=== PATIENT | male | born 1945 | race Caucasian/White ===

== ENCOUNTER 2018-12-06 04:11 | Outpatient (CLI) | payer MEDICARE, BC, SELFPAY ==
[2018-12-06 07:52] LABS: Abs Immature Grans 0.01 k/cumm (0.0-0.09); Absolute Basophil Count 0.02 k/cumm (0.0-0.2); Absolute Lymphocyte Count 1.55 k/cumm (1.2-3.4); Absolute Monocyte Count 0.57 k/cumm (0.11-0.7); Absolute Neutrophil Count 2.69 k/cumm (1.2-6.7); Basophils % 0.4; Eosinophils % 5.8; HCT 44.3 % (40.0-50.0); HGB 14.8 g/dL (13.5-17.5); Immature Grans % 0.2; Lymphocytes % 30.2; Mean Corp. HGB Concentration 33.4 g/dL (32.0-36.0); Mean Corpuscular Hemoglobin 28.5 pg (27.0-33.0); Mean Corpuscular Volume 85.2 fL (80-95); Mean Platelet Volume 10.4 fL (8.0-11.0); Monocytes % 11.1; Neutrophils % 52.3; Platelet Count 180 x1000/uL (130-400); RBC Distribution Width 12.7 % (11.8-14.1); White Blood Cell Count 5.14 k/cumm (4.4-10.8)
[2018-12-06 08:06] LABS: Hemoglobin A1C 6.1 % (4.5-6.2)
[2018-12-06 08:14] LABS: INR 1.1 (0.9-1.1); Prothrombin Time 10.9 sec (9.3-11.0)
[2018-12-06 08:25] LABS: Iron 101 ug/dL (50-175); Total Iron Binding Capacity 249 ug/dL (250-450); Transferrin Sat 41 % (20-55)
[2018-12-06 08:45] LABS: ALT 60 U/L (12-78); AST 29 U/L (15-37); Alkaline Phosphatase 97 U/L (46-116); Anion Gap 9.2 mmol/L (3-11); BUN 17 mg/dL (7-18); Bilirubin, Total 1.3 mg/dL (0.2-1.0); CO2 28.8 mmol/L (21.0-32.0); CREATININE 0.96 mg/dL (0.70-1.30); Chloride 103 mmol/L (98-107); Cholesterol 159 mg/dL (50-200); Ferritin 48 ng/mL (8-388); Glucose 115 mg/dL (70-100); HDL Cholesterol 37 mg/dL (40-60); LDL CHOLESTEROL 107 mg/dL (<100); Potassium 3.8 mmol/L (3.5-5.1); Sodium 141 mmol/L (136-145); Total Protein 7.2 g/dL (6.4-8.2); Triglyceride 130 mg/dL (30-150)
== END 2018-12-06 04:31 ==
PROVIDERS: PCP Nurse Practitioner Family; Visit Provider Nurse Practitioner Family
DX: R73.01 Impaired fasting glucose (principal); E78.5 Hyperlipidemia, unspecified; K76.0 Fatty (change of) liver, not elsewhere classified
CPT/HCPCS: 36415; 80053; 80061; 83721; 82728; 83036; 83540; 83550; 85025; 85610

== ENCOUNTER 2020-03-13 10:39 | Outpatient (CLI) | payer MEDICARE, BC, SELFPAY ==
--- NOTE | 2020-03-13 10:15 | DI.RAD_ITS ---
EXAM: XR HIP RT COMPLETE AP PELVIS INDICATION: eval R hip pain. COMPARISON: No exams were available for comparison TECHNIQUE: 2D digital imaging was performed. FINDINGS: There is bilateral acetabular spurring. There is [id number] narrowing of right hip joint spac e. There is spurring at the margin of the right femoral head. Mild spurring is also seen from the m argin of left femoral head. Bilateral inguinal hernia repairs are noted. IMPRESSION: Moderate degenerative changes the left hip. Mild degenerative changes of right hip. DATA REPOSITORY: RADIATION DOSE DELIVERED:
== END 2020-03-13 10:59 ==
PROVIDERS: PCP Nurse Practitioner Family; Referring Provider Nurse Practitioner Family; Visit Provider Student in an Organized Health Care Education/Training Program
DX: M16.0 Bilateral primary osteoarthritis of hip (principal); M25.551 Pain in right hip; R20.0 Anesthesia of skin; R20.2 Paresthesia of skin; I10 Essential (primary) hypertension
CPT/HCPCS: 99203; 73502

== ENCOUNTER 2020-11-14 02:04 | Outpatient (CLI) | payer MEDICARE, BC, SELFPAY ==
[2020-11-14 08:24] LABS: Hemoglobin A1C 6.2 % (<5.7)
[2020-11-14 08:27] LABS: INR 1.1 (0.9-1.1); Prothrombin Time 11.3 sec (9.3-11.0)
[2020-11-14 09:09] LABS: Iron 121 ug/dL (65-175); Total Iron Binding Capacity 285 ug/dL (250-450); Transferrin Sat 42 % (20-55)
[2020-11-14 09:18] LABS: ALT 104 U/L (16-63); AST 53 U/L (15-37); Albumin 4.2 g/dL (3.4-5.0); Alkaline Phosphatase 90 U/L (46-116); Anion Gap 9.2 mmol/L (3-11); BUN 16 mg/dL (7-18); Bilirubin, Total 1.5 mg/dL (0.2-1.0); CO2 30.8 mmol/L (21.0-32.0); Calcium 8.9 mg/dL (8.5-10.1); Chloride 105 mmol/L (98-107); Ferritin 75 ng/mL (26-388); Glucose 125 mg/dL (74-106); Potassium 3.9 mmol/L (3.5-5.1); Sodium 145 mmol/L (136-145); Total Protein 7.4 g/dL (6.4-8.2)
== END 2020-11-14 02:05 | disposition home or self-care (01) ==
LOC: LBO 02:04
PROVIDERS: PCP Nurse Practitioner Family; Visit Provider Nurse Practitioner Family
DX: I10 Essential (primary) hypertension (principal); R73.01 Impaired fasting glucose; K76.0 Fatty (change of) liver, not elsewhere classified
CPT/HCPCS: 36415; 80053; 82728; 83036; 83540; 83550; 85610

== ENCOUNTER 2021-05-21 11:57 | Outpatient (CLI) | payer MEDICARE, BC, SELFPAY ==
--- NOTE | 2021-05-21 11:15 | DI.RAD_ITS ---
Exam(s) XR LUMBAR SPINE AP, LAT EXAM: XR LUMBAR SPINE AP, LAT CLINICAL HISTORY: eval RLE weakness. TECHNIQUE: 2D digital imaging was performed of the lumbar spine. Three images were obtained. AP, l ateral and L5-S1 spot views were obtained. COMPARISON: CR SACRO ILIAC JOINTS from 12/04/2012 CR SACRO ILIAC JOINTS from 12/04/2012 CR LUMBAR SPINE COMPLETE from 12/04/2012 CR LUMBAR SPINE COMPLETE from 12/04/2012 CR XR HIP RT AP LAT ONLY from 05/21/2021 FINDINGS: BONES: No fracture or destructive lesion. Small endplate osteophytes are seen throughout the lumbar s pine anteriorly. No facet hypertrophy identified. DISKS: Mild narrowing and a vacuum disc at L5-S1. The disc heights are otherwise well maintained. ALIGNMENT: Lumbar spinal alignment is within normal limits. No spondylolysis or spondylolisthesis. SOFT TISSUE: Calcifications are seen in the right upper quadrant of the abdomen consistent with blu lithiasis. IMPRESSION: 1. Mild degenerative changes in the lumbar spine. 2. Cholelithiasis. DATA REPOSITORY: RADIATION DOSE DELIVERED:
--- NOTE | 2021-05-21 11:15 | DI.RAD_ITS ---
Exam(s) XR HIP RT AP LAT ONLY EXAM: XR HIP RT AP LAT ONLY CLINICAL HISTORY: f/u R hip pain. TECHNIQUE: 2D digital imaging was performed of the right hip. Two images were obtained. AP and late ral right hip views were obtained. COMPARISON: CR XR HIP RT COMPLETE AP PELVIS from 03/13/2020 CR XR HIP RT COMPLETE AP PELVIS from 03/13/2020 FINDINGS: BONES: No acute fracture is present. No bony destructive lesion is seen. JOINTS: No dislocation present. Mild joint space narrowing and acetabular spurring is seen in the rig ht hip. SOFT TISSUE: Normal. IMPRESSION: Stable mild degenerative changes of the right hip. DATA REPOSITORY: RADIATION DOSE DELIVERED:
== END 2021-05-21 11:58 | disposition home or self-care (01) ==
LOC: DIORS 11:57
PROVIDERS: PCP Nurse Practitioner Family; Referring Provider Nurse Practitioner Family; Visit Provider Student in an Organized Health Care Education/Training Program
DX: M25.551 Pain in right hip (principal); R20.0 Anesthesia of skin; R20.2 Paresthesia of skin; M25.851 Other specified joint disorders, right hip
CPT/HCPCS: 99213; 72100; 73502

== ENCOUNTER 2021-06-04 02:09 | Outpatient (CLI) | payer MEDICARE, BC, SELFPAY ==
--- NOTE | 2021-06-04 07:45 | DI.RAD_ITS ---
Exam(s) RF JOINT INJECTION FLUORO GUID EXAM: RF JOINT INJECTION FLUORO GUID CLINICAL HISTORY: R HIP INJ UNDER FLUORO, rt hip pain, M25.551 TECHNIQUE: Fluoroscopy provided. Radiologist not present. CONTRAST MATERIAL: None COMPARISON: No exams were available for comparison FINDINGS: Fluoroscopy was provided for Dr. Hendrix during right hip therapeutic injection. Submitted image(s) reveal distal tip of the needle at the lateral aspect of the femoral head. Contra st injected into the articular space. Please refer to the procedure report for complete details. Cumulative Dose: shy Shaffer=0.64 mGy IMPRESSION: RADIATION DOSE DELIVERED:
[2021-06-04] MEDS: Bupivacaine 0.5% Pres-Free 10 ML VIAL IJ (13:40)
[2021-06-04] MEDS: Omnipaque 300 MG/ML 10 ML BTL IJ (13:42)
[2021-06-04] MEDS: methylPREDNISolone ACETATE 80 MG/ML VIAL IM (13:43)
--- NOTE | 2021-06-04 14:37 | W.PROCNOTE ---
Date of service: 06/04/21 Time of Service: 13:37 Procedure Note Date of procedure: 06/04/21 Procedure: Right Hip Injection with Fluoroscopic Guidance Surgeon/Proceduralist/Physician: Bret Hendrix Procedure Diagnosis: Right Hip Pain/Impingement Procedure Indications: Pino has had persistent pain of the RIGHT hip and groin. Noninvasive measures have been tried. To serve as both diagnostic and therapeutic, an injection under fluoroscopy was recommended. I had discussed the risks of the procedure and the patient elected to proceed. Procedure Description: Pino was greeted in the flouroscopy room. The correct side was identified and the consent was reviewed with the patient and signed. The patient was then placed in the supine position on the fluoroscopy table. The RIGHT hip was then prepped with Chloraprep. The anterolateral injection starting point was identiifed by bony landmarks and fluoroscopy. The skin and soft tissue in the tract of the injection was anesthetized with 1% Lidocaine. A spinal needle was then inserted deep into the hip joint at the level of the lateral femoral neck under fluoroscopic guidance. A small amount of Omnipaque solution was injected to confirm intraarticular placement. Once confirmed, the hip was injected with 6cc of 0.5% Bupivicaine and 80mg of Depo-Medrol. A bandaid was placed on the injection site. The patient tolerated the procedure well and noted improvement in pre-injection pain.
== END 2021-06-04 02:29 ==
PROVIDERS: PCP Nurse Practitioner Family; Visit Provider Student in an Organized Health Care Education/Training Program
DX: M25.551 Pain in right hip (principal); M25.851 Other specified joint disorders, right hip; R10.31 Right lower quadrant pain
CPT/HCPCS: 20610; 77002; J1040

== ENCOUNTER 2021-09-20 03:05 | Emergency (ER) | payer MEDICARE, SELFPAY ==
[2021-09-20 03:11] VITALS: BP 160/99; PULSE 87; RESP 18; TEMP 36.4; O2SAT 97
--- NOTE | 2021-09-20 03:15 | ED.GENADUL_ITS ---
Discharge Plan Disposition Patient Disposition: HOME Condition: Good Discharge Details Clinical Impression: Colitis, Diarrhea Primary Care Provider: Chantel Nguyen ED Provider: Adal Leavitt Home Meds and New Rx's Prescriptions: New ciprofloxacin HCl 500 mg tablet 500 mg PO BID 6 Days Qty: 12 RF: 0 metronidazole 500 mg tablet 500 mg PO TID 6 Days Qty: 18 RF: 0 Continued diphenhydramine-acetaminophen [Tylenol PM Extra Strength] 25-500 mg tablet 1 tab PO QHS PRNRF: 0 celecoxib [Celebrex] 200 mg capsule 200 mg PO BID Qty: 60 RF: 0 cbd oil PO .qd RF: 0 Probiotic 1 EACH capsule 1 ea PO RF: 0 losartan [Cozaar] 100 mg tablet 100 mg PO DAILY Qty: 90 RF: 3 amlodipine 5 mg tablet 5 mg PO DAILY Qty: 90 RF: 3 omeprazole 20 mg capsule,delayed release(DR/EC) 20 mg PO DAILY Qty: 90 RF: 3 Discharge Instructions Instructions: Ciprofloxacin (By mouth), Metronidazole (By mouth), Colitis (ED) Additional Instructions: At this time you have evidence of mild colitis which is an infection in your intestines. It is similar to diverticulitis. We have sent a prescription of an antibiotic to your pharmacy on file. We have given you 2 bottles, one for each of the antibiotic that you are to take, to hold you over until your pre scription is filled. Please stop taking me Augmentin that you are prescribed and take these medications instead. Please take Pepto-Bismol as needed for diarrhea. Please drink plenty of fluids and stay well-hydrated. You will be contacted if your stool studies return with any growth or abnormalities. If you notice any worsening of your symptoms, or any new symptoms such as vomiting, diarrhea, fever, chills, shortness of breath, chest pain, numbness, weakness, or fainting , please return immediately to the emergency department for reevaluation. Please follow up with your primary care provider as soon as possible for reassessment and reevaluation. As always, it was a pleasure participating in your medical care today. If your physician daughter has any questions, I would be happy to review your case with her! Feel free to have her call me anytime in the emergency department where myself or one of my colleagues can review the case with her. Referrals: Chantel Nguyen, MINNA [Primary Care Provider] - Medical Decision Making This is a pleasant 75-year-old male with a past medical history of GERD, high cholesterol, gallstones, nonalcoholic fatty liver disease, and previous diverticulitis who presents today for evaluation of left lower quadrant pain and diarrhea for the last 3 days. Patient states that since Tuesday he has had a bowel movement every 45 minutes. It has been loose and watery in nature. Initially it was yellow, however over the last 24 hours it has transitioned to darker colored stool. He denies any foreign travel, any recent antibiotic use, or any vomiting. He does admit to nausea. He has some very mild achiness in the left lower quadrant of the abdomen. He denies any urinary complaints. Nothing has improved his diarrhea. He has not eaten any foods, but has been drinking water and Gatorade to stay hydrated. No other complaints at this time. No other modifying factors. Physical exam demonstrates mild achiness to the left lower quadrant, dry mucous membranes. No genital or scrotal or testicular tenderness. Differential is highest for diverticulitis, less likely kidney stone. In regards to the diarrhea infection seems unlikely given no red flag in history or on exam. Diverticulitis or diverticulosis may get because of the most recent diarrhea. We will perform stool studies as well. We will rehydrate, monitor closely and reassess. 4:[address] results show evidence of mild pancolitis. Laboratory work-up is stable. Patient has been rehydrated with a liter of normal saline. Electrolytes stable, white count normal. Anion gap 13 suggestive of mild dehydration. Total bilirubin is up at 2.3, however patient does have a history of [place], and CAT scan shows no evidence of acute cholecystitis or obstruction. Lipase normal. Patient did provide stool, and we will send these for stool studies. We will give a dose of IV Cipro and Flagyl due to the notable diarrhea that the patient is having. We will give a bilateral of Cipro and Flagyl for home use, and a prescription will be sent to his pharmacy for a completed course. Patient shows no signs of an acute abdomen on reexam. He appears well is much improved. Hemoglobin stable, and stool color is actually green and not black. Symptoms inconsistent with GI bleeding. The patient's daughter is a rim roller operator, I did offer to call her however the patient does not have his cell phone and does not recall her number. I offered for her to call back anytime and we can discuss the case. Discussed red flags for which to return. I have extensively reviewed the treatment plan and discharge instructions with the patient. I have addressed all patient concerns at this time. The patient was made aware of what symptoms to monitor for that would warrant a return to the emergency department. Discussed the plan with the patient, they demonstrate verbal understanding and agreement with our assessment and plan at this time. The documentation in this chart was dictated using [employer] dictation software. Please excuse any dictation errors. FINDINGS: Lungs: Trace dependent bibasilar atelectasis. Heart: The visualized heart is within normal limits for size. There is no evidence of pericardial abnormality. Liver: There is a diffuse mild decrease in hepatic parenchymal density, consistent with fatty infiltration. Gallbladder and bile ducts: Multiple calcified gallstones noted. No gallbladder wall thickening or pericholecystic fat stranding or fluid. Pancreas: Fatty atrophy of the pancreas. Spleen: The spleen appears normal. Adrenal glands: The adrenals appear normal. Kidneys and ureters: The kidneys enhance symmetrically and empty into non- dilated ureters. Stomach and bowel: The stomach is not well distended but appears unremarkable.The small bowel loops are not abnormally dilated and demonstrate no focal wall thickening. Wall thickening of the sigmoid, descending, portions of the transverse and ascending colon/cecum with minimal adjacent pericolonic fat stranding. Appendix: The appendix appears normal. ntraperitoneal space: Trace free fluid in the dependent portion of the pelvis. Vasculature: Mildly prominent left internal iliac draining vein along the left lateral margin of the prostate. The IVC and aorta are unremarkable. Lymph nodes: There are no enlarged lymph nodes. Urinary bladder: The bladder is distended and demonstrates no focal contour abnormality. Reproductive: Small right-sided hydrocele. Prostate is mildly prominent but not significantly enlarged. The seminal vesicles are unremarkable. Bones/joints: Degenerative disc disease at L5-S1. Soft tissues: Postsurgical changes in the inguinal region bilaterally. Other findings: Motion artifact limiting detail in the abdomen portions of the pelvis. IMPRESSION: 1. Findings consistent with mild pancolitis. 2. Cholelithiasis without evidence of acute cholecystitis. 3. Questionable mild hepatic steatosis. 4. Small right-sided hydrocele. Thank you for allowing us to participate in the care of your patient. Dictated and Authenticated by: Javed Paniagua MD 09/20/2021 4:33 AM Eastern Time ([place] & [place]) HPI General Date/Time Provider Initiated Documentation: 09/20/21 03:07 . HPI Narrative: This is a pleasant 75-year-old male with a past medical history of GERD, high cholesterol, gallstones, nonalcoholic fatty liver disease, and previous diverticulitis who presents today for evaluation of left lower quadrant pain and diarrhea for the last 3 days. Patient states that since Tuesday he has had a bowel movement every 45 minutes. It has been loose and watery in nature. Initially it was yellow, however over the last 24 hours it has transitioned to darker colored stool. He denies any foreign travel, any recent antibiotic use, or any vomiting. He does admit to nausea. He has some very mild achiness in the left lower quadrant of the abdomen. He denies any urinary complaints. Nothing has improved his diarrhea. He has not eaten any foods, but has been drinking water and Gatorade to stay hydrated. No other complaints at this time. No other modifying factors. Related Data Home Medications Medication Instructions Recorded Confirmed Probiotic 1 ea PO 05/13/17 05/23/21 cbd oil PO .qd 12/07/18 05/23/21 diphenhydramine 25 1 tab PO QHS PRN 11/17/20 09/20/21 mg-acetaminophen 500 mg tablet losartan 100 mg tablet 100 mg PO DAILY #90 tab-cap 04/03/21 09/20/21 amlodipine 5 mg tablet 5 mg PO DAILY #90 tab-cap 04/13/21 09/20/21 omeprazole 20 mg capsule,delayed 20 mg PO DAILY #90 tab-cap 04/23/21 09/20/21 release celecoxib 200 mg capsule 200 mg PO BID #60 cap 06/04/21 09/20/21 ciprofloxacin HCl 500 mg PO BID 6 Days #12 tab 09/20/21 metronidazole 500 mg PO TID 6 Days #18 tab 09/20/21 Previous Rx's Medication Instructions Recorded losartan 100 mg tablet 100 mg PO DAILY #90 tab-cap 04/03/21 amlodipine 5 mg tablet 5 mg PO DAILY #90 tab-cap 04/13/21 omeprazole 20 mg capsule,delayed 20 mg PO DAILY #90 tab-cap 04/23/21 release celecoxib 200 mg capsule 200 mg PO BID #60 cap 06/04/21 ciprofloxacin HCl 500 mg PO BID 6 Days #12 tab 09/20/21 metronidazole 500 mg PO TID 6 Days #18 tab 09/20/21 Allergies Allergy/AdvReac Type Severity Reaction Status Date / Time peanut Allergy Unknown Verified 09/20/21 03:15 General Stated Complaint: Abd Prob PEDRO: 3 Review of Systems All systems reviewed & are unremarkable except as noted in HPI and below PFSH All Active Problems (Updated 09/20/21 @ 04:41 by Adal Leavitt DO) Colitis (Acute) Diarrhea (Acute) Femoroacetabular impingement of right hip (Acute) Right hip pain (Acute) Gastroesophageal reflux disease (Chronic) Numbness and tingling of right leg (Chronic) 02/2020 Ortho consult: most likely 2/2 intermittent compression of sciatic nerve Sensorineural hearing loss, bilateral (Chronic 02/28/14) Non-alcoholic fatty liver disease (Chronic 11/05/16) NEG hep B & C [facility] GI consult 11/02/2016: Most likely cause for elevated LFTs, bilirubin, & ferritin is NAFLD not hemochromatosis. Recommend annual monitoring of CBC, CMP, PT/INR, serum phlebotomy if serum iron saturation robustly increases in parallel with serum ferritin. IFG (impaired fasting glucose) (Chronic 05/13/17) Hyperlipidemia, unspecified (Chronic 12/25/13) 11/2018 labs: 10-year ASCVD risk = ~26.1% --> statin recommended, pt declines, plan to stop checking lipid panels Essential hypertension (Chronic) Goal BP </= 150/90 (pt has issues with dizziness/lightheadedness if BP too low) Elevated LFTs (Chronic) NEG Hep B & C, [place] iron studies Determined related to NAFLD ([facility] GI consult 10/2016) Dyslipidemia (Chronic) Low HDL, candidate for statin therapy based on CV risk (see candidate for statin therapy... 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) 11/02/2016 [facility] GI consult: Most likely due to NAFLD Candidate for statin therapy due to risk of future cardiovascular event (Chronic) 09/2014 labwork: ACC/AHA 10-year ASCVD risk = ~23% --> recommended statin therapy --> pt declines to take statin Medical History Colon polyps Inguinal hernia BILAT OPEN WITH MESH Right bundle branch block (RBBB) Tubular adenoma of colon (10/22/16) Surgical History Arthroscopy (~2010) R SHOULDER Colonoscopy - MAC (10/22/16) Repair of inguinal hernia 2000 & 2012 Family History Mother Personal history of malignant neoplasm breast Father Nephrolithiasis Pulmonary emphysema Son Hepatic steatosis Daughter Hepatic steatosis Brother Essential hypertension Social History Smoking/Tobacco Use Status: Never Smoking risk assessment performed?: Yes Alcohol Intake: current Alcohol Intake frequency: 0-2 drinks per day Alcohol type: beer Drug use: Never Substance use type: does not use Adopted: No Caregiver/Support person: No Foster care: No Household members: spouse Number of Children: 4 number of grandchildren: 16 Communication Needs: None current occupation: Builds tubing tubes, welding Pets and animals: No Current gender identity: male What type of physical activity do you participate in: walking and other Details: golf Duration: 15-30 minutes/day Frequency: daily Seatbelt use: always Helmet use: No Drive intox or ride w/intox cryogenic transport driver: No Water heater temp set <120 deg: Yes Working smoke detector in home: Yes Fire extinguisher in home: Yes Carbon monox detector in home: Yes Firearms in home: Yes Firearms unloaded and locked: Yes Do you feel safe at home: Yes Do you feel safe in your relationship?: Yes Exam Narrative Exam Narrative: 1.Const: Well-nourished, Well-developed, appearing stated age 2.Eyes: PERRL, no conjunctival injection, and symmetrical lids. 3.ENT: Atraumatic external nose and ears. Dry MM. Neck: Symmetric, trachea midline, No thyromegaly. 4.CVS: +S1/S2, No murmurs or gallops. Peripheral pulses 2+ and equal in all extremities. Brisk capillary refill in all extremities. 5.RESP: Unlabored respiratory effort. Clear to auscultation bilaterally. No wheezes rales or rhonchi 6.GI: Soft, nondistended, mild achiness in the left lower quadrant. No genital scrotal or testicular tenderness. 7.MSK: Normocephalic/Atraumatic, Extremities w/o deformity or ttp No cyanosis or clubbing, Normal movement of all extremities 8.Skin: Warm, Dry. No rashes or lesions. 9.Neuro: neonatal doctor II-XII grossly intact. Sensation grossly intact, no focal neurologic deficits. 10.Psych: (AAO) x3. Appropriate mood and affect Course Vital Signs Vital signs: Vital Signs Temperature 36.4 C L 09/20/21 03:11 Pulse 87 09/20/21 03:11 Respiratory Rate 18 09/20/21 03:11 Blood Pressure 160/99 H 09/20/21 03:11 Pulse Oximetry 97 09/20/21 03:11 Temperature 36.4 C L 09/20/21 03:11 Temperature Source Skin 09/20/21 03:11 Pulse 87 09/20/21 03:11 Respiratory Rate 18 09/20/21 03:11 Blood Pressure 160/99 H 09/20/21 03:11 Pulse Oximetry 97 09/20/21 03:11
--- NOTE | 2021-09-20 03:15 | DI.CT_ITS ---
Exam(s) CT ABDOMEN PELVIS W EXAM: CT ABDOMEN PELVIS W CLINICAL HISTORY: LLQ pain, diarrhea, r/o diverticulitis. TECHNIQUE: Imaging Protocol: Axial computed tomography images with coronal and sagittal reformatted images were created and reviewed CONTRAST MATERIAL: Intravenous: Omnipaque 100cc Oral: None COMPARISON: No exams were available for comparison FINDINGS: Images are degraded by motion artifact VISUALIZED LUNG BASES: Mild increased markings in the posterior basal segment right lower lobe. No p leural effusions.. ABDOMEN: LIVER: Liver is hypodense implying steatosis. There are no discrete focal hepatic lesions identified . GALLBLADDER/BILIARY: Measures 7 cm x 2 cm. No obvious gallbladder wall edema. CBD is not dilated. There is no dilatation of intrahepatic ducts. PANCREAS: There is a 9 x 8 millimeter hypodensity in the pancreatic head which exhibits mild peripher al calcification. Pancreatic duct is not dilated. No other focal findings evident in the pancreas. SPLEEN: Spleen size upper normal. Area of subtle hypodensity in the anterior inferior aspect of the spleen is noted, possibly significant. Does not have the appearance of a cyst. May represent candy ioma or other pathology. Splenic and portal veins are patent. ADRENALS: There are no significant adrenal masses. KIDNEYS:No cysts evident. No solid renal masses. No calculi nor hydronephrosis.. ABDOMINAL AORTA: Abdominal aorta size is upper normal. Same 4 common iliac arteries. Same for the e xternal iliac arteries and common femoral arteries. There are no focal aneurysms in these vessels no r tight stenosis evident on this contrast infused study. LYMPH NODES:There is no retroperitoneal nor paraaortic adenopathy. ABDOMINAL WALL: Evidence of bilateral inguinal hernia repairs. No acute acute appearing hernias evid ent GI: There is no evidence of bowel obstruction, free air, nor abscess. Evaluation of bowel loops is somewhat limited because the amount of motion artifact here. However, t here appears to be a diffuse colitis pattern involving the entire colon. Also sigmoid diverticuli bu t no obvious acute diverticulitis. However, there is a small amount of free fluid in the dependent a spect of the pelvis, left of center (series 4/image 83). PELVIS: GI: Appendix is difficult to identify. No obvious appendicitis.There are sigmoid diverticuli. No ob vious acute diverticulitis. LYMPH NODES: There is no intrapelvic nor inguinal adenopathy. REPRODUCTIVE: Prostate slightly enlarged. Seminal vesicles unremarkable. URINARY BLADDER: No calculi nor obvious masses evident OSSEOUS: No significant osseous lesions. IMPRESSION: 1. Although images are somewhat blurred by motion artifact, there does appear to be diffuse abnormali ty of the colon consistent with pancolitis. Appendix is not able to be identified. No obvious appen dicitis. 2. Sigmoid diverticulosis. No obvious diverticulitis. However, there is a small amount of free flui d in the left side of the dependent pelvis. I suspect this is probably related to the levin colitis. 3. Cholelithiasis. Multiple 11 millimeter gallstones are noted. No obvious acute cholecystitis. CB D is not dilated. 4. There is a partially peripherally calcified 9 x 8 millimeter hypodensity in the pancreatic head wh ich requires further investigation. There are parenchymal calcifications also noted in this region a s well as a few parenchymal calcifications in the pancreatic body. MRI with pancreatic protocol and MRCP recommended. Subtle finding in the spleen inferior aspect which is not a typical cyst. This will also be seen and studied with contrast fused MRI. Hepatic steatosis noted. No discrete focal hepatic lesions identified. There are no dilated intrahe patic ducts. RADIATION DOSE DELIVERED: 1,027.64mGy.cm Total DLP DATA REPOSITORY: All CT scans at this facility are submitted to the National Radiology Data Registry (NRDR) Dose Index Registry (DIR) with the [employer] (A[employer]). RADIATION OPTIMIZATION: All CT scans at this facility use at least one of these dose optimization te chniques: automated exposure control; mA and/or kV adjustment per patient size (includes targeted exa ms where dose is matched to clinical indication); or iterative reconstruction.
[2021-09-20] MEDS: Dicyclomine 10 MG CAP PO (03:35)
[2021-09-20] MEDS: Acetaminophen 500 MG TAB 1000 MG PO (03:35)
[2021-09-20 03:36] LABS: Abs Immature Grans 0.02 10^3/uL (0.0-0.06); Absolute Basophil Count 0.01 10^3/uL (0.0-0.2); Absolute Lymphocyte Count 0.66 10^3/uL (1.2-3.4); Absolute Monocyte Count 0.53 10^3/uL (0.1-0.8); Absolute Neutrophil Count 5.94 10^3/uL (1.2-6.7); Basophils % 0.1; HCT 42.4 % (40.0-50.0); HGB 14.2 g/dL (13.5-17.5); Immature Grans % 0.3; Lymphocytes % 9.2; MCH 28.9 pg (27.0-33.0); MCHC 33.5 % (32.0-36.0); MCV 86.4 fL (80-95); MPV 10.2 fL (8.0-11.0); Monocytes % 7.4; Nucleated RBC 0 %; Platelet Count 138 10^3/uL (130-400); RBC 4.91 10^6/uL (4.36-5.78); RDW 11.9 % (11.8-14.1); RDW-SD 38.2 fL; WBC 7.16 10^3/uL (4.4-10.8)
[2021-09-20] MEDS: Normal Saline 1,000 ML 1000 ML IV (03:37)
[2021-09-20 03:49] LABS: ALT 63 U/L (16-63); AST 40 U/L (15-37); Albumin 3.7 g/dL (3.4-5.0); Alkaline Phosphatase 90 U/L (46-116); Anion Gap 13.1 mmol/L (3-11); BUN 11 mg/dL (7-18); Bilirubin, Total 2.3 mg/dL (0.2-1.0); CO2 23.9 mmol/L (21.0-32.0); CREATININE 1.1 mg/dL (0.70-1.30); Calcium 8.6 mg/dL (8.5-10.1); Chloride 98 mmol/L (98-107); Glucose 161 mg/dL (74-106); Lipase 42 U/L (73-393); Potassium 3.2 mmol/L (3.5-5.1); Sodium 135 mmol/L (136-145); Total Protein 7.2 g/dL (6.4-8.2)
[2021-09-20] MEDS: Omnipaque 350 MG/ML 100 ML BTL IJ (04:15)
[2021-09-20 04:30] LABS: Bilirubin Negative (Negative); Blood Small (Negative); Clarity Clear (Clear); Glucose Negative (Negative); Ketones 15 mg/dL (Negative); Leukocyte Esterase Negative (Negative); Nitrite Negative (Negative); Urobilinogen 0.2 EU/dL (Up TO 0.2)
--- NOTE | 2021-09-20 04:33 | DI.VRAD_ITS ---
PROCEDURE INFORMATION: Exam: CT Abdomen And Pelvis With Contrast Exam date and time: 09/20/2021 3:17 AM Age: 75 years old Clinical indication: Abdominal pain; Localized; Left lower quadrant (llq); Patient HX: Llq pain, diarrhea; Additional info: R/O diverticulitis TECHNIQUE: Imaging protocol: Computed tomography of the abdomen and pelvis with contrast. COMPARISON: CR XR HIP RT COMPLETE AP PELVIS 03/13/2020 10:37 AM FINDINGS: Lungs: Trace dependent bibasilar atelectasis. Heart: The visualized heart is within normal limits for size. There is no evidence of pericardial abnormality. Liver: There is a diffuse mild decrease in hepatic parenchymal density, consistent with fatty infiltration. Gallbladder and bile ducts: Multiple calcified gallstones noted. No gallbladder wall thickening or pericholecystic fat stranding or fluid. Pancreas: Fatty atrophy of the pancreas. Spleen: The spleen appears normal. Adrenal glands: The adrenals appear normal. Kidneys and ureters: The kidneys enhance symmetrically and empty into non-dilated ureters. Stomach and bowel: The stomach is not well distended but appears unremarkable.The small bowel loops are not abnormally dilated and demonstrate no focal wall thickening. Wall thickening of the sigmoid, descending, portions of the transverse and ascending colon/cecum with minimal adjacent pericolonic fat stranding. Appendix: The appendix appears normal. Intraperitoneal space: Trace free fluid in the dependent portion of the pelvis. Vasculature: Mildly prominent left internal iliac draining vein along the left lateral margin of the prostate. The IVC and aorta are unremarkable. Lymph nodes: There are no enlarged lymph nodes. Urinary bladder: The bladder is distended and demonstrates no focal contour abnormality. Reproductive: Small right-sided hydrocele. Prostate is mildly prominent but not significantly enlarged. The seminal vesicles are unremarkable. Bones/joints: Degenerative disc disease at L5-S1. Soft tissues: Postsurgical changes in the inguinal region bilaterally. Other findings: Motion artifact limiting detail in the abdomen portions of the pelvis. IMPRESSION: 1. Findings consistent with mild pancolitis. 2. Cholelithiasis without evidence of acute cholecystitis. 3. Questionable mild hepatic steatosis. 4. Small right-sided hydrocele. Dictated and Authenticated by: Javed Paniagua MD. Ordering:MADELEINE Galeas MD
[2021-09-20 04:45] LABS: Bacteria Few HPF (Negative); C & S Indicated? No; Crystals Negative HPF (Negative); Epithelial Cells Rare HPF (Negative); Mucus Negative (Negative); WBC 0-2 HPF (0-5)
[2021-09-20] MEDS: CIPROFLOXACIN 400 MG/200 ML BAG 200 MG IVPB (05:05)
[2021-09-20 05:06] VITALS: BP 137/84; PULSE 65; RESP 16; O2SAT 96
[2021-09-20] MEDS: metroNIDAZOLE 500 MG/100 ML BAG 100 MG IVPB (05:06)
[2021-09-20 05:40] LABS: C Diff PCR Negative (Negative)
[2021-09-20 06:14] VITALS: BP 136/82; PULSE 60; RESP 16; O2SAT 96
[2021-09-20] MEDS: metroNIDAZOLE 500 MG TAB, 3 TABS/BTL PO (06:16)
[2021-09-20 06:56] LABS: Casts 0-2 Hyaline LPF (Negative)
[2021-09-20 23:30] LABS: Campylobacter PCR Negative (Negative); Shiga Toxin PCR Negative (Negative); Shigella/Enteroinvasive Ecoli Negative (Negative)
[2021-09-21 13:52] LABS: Salmonella PCR Positive (Negative)
== END 2021-09-20 06:43 | disposition home or self-care (01) ==
PROVIDERS: Emergency Provider Student in an Organized Health Care Education/Training Program; PCP Nurse Practitioner Family
DX: A02.0 Salmonella enteritis (principal); R19.7 Diarrhea, unspecified
CPT/HCPCS: 80053; 83690; 87329; 87493; 87505; 96361; 96365; 96368; 99285; 74177; 81003; 81015; 85025; 87177; 99284; J0744; J3490

== ENCOUNTER 2021-11-03 01:26 | Outpatient (CLI) | payer MEDICARE, SELFPAY ==
--- NOTE | 2021-11-03 06:30 | DI.MRI_ITS ---
Exam(s) MR ABDOMEN WO/W EXAM: MR ABDOMEN WO/W CLINICAL HISTORY: evaluate pancreatic lesion (incidental finding),R93.5, F/U ABNL CT TECHNIQUE: Multiplanar multisequence MRI was performed with both pre and post contrast infused seque nces. Contrast injected sequences were performed following IV injection of 18 cc of Dotarem. COMPARISON: MR MRI ABDOMEN WO,W from 12/25/[address] ABDOMEN PELVIS W from 09/20/2021 FINDINGS: VISUALIZED LUNG BASES: No pleural effusions evident. There is no ascites evident. LIVER: There are no discrete focal hepatic lesions nor dilatation of intrahepatic ducts. BILIARY: Multiple gallstones are seen in the gallbladder lumen. Gallbladder does not appear edematou s and there is no pericholecystic fluid. There are no calculi seen in the cystic duct nor within the nondilated CBD. PANCREAS: There are 2 separate cystic structures in the pancreas. One of these is in the pancreatic neck region and measures 11 x 9 millimeters. The previously described mural calcification in this cy st is better appreciated on CT than on MRI. Other tiny cysts are also noted in the pancreas as well as a small cyst slightly larger than the others in the pancreatic tail measuring 5 x 6 millimeters. The pancreatic duct is not dilated. There no obvious solid pancreatic masses. No evidence of peripa ncreatic adenopathy. No periportal adenopathy. No peripancreatic fluid collections. SPLEEN: Spleen is not enlarged and there are no intrasplenic lesions.Splenic and portal veins are pat ent ADRENALS: There are no significant adrenal masses. KIDNEYS: Kidneys exhibit normal size. There are small parapelvic cysts in both kidneys.No solid joaquim l masses. Another sub cm cyst is noted in the medial cortex of the right kidney and a 3 millimeter c yst is noted in the superior aspect superior pole of the right kidney. Is another tiny 2 millimeters cyst in the superior pole of the opposite-left kidney. No evidence of hydronephrosis. ABDOMINAL AORTA: Not enlarged and there is no significant para-aortic adenopathy. ANTERIOR ABDOMINAL WALL/GI: There is no evidence of significant anterior abdominal wall hernia in the field of view of this study.Is no evidence of obvious bowel obstruction. OSSEOUS: There are no lytic osseous lesions in the field of view of this study. IMPRESSION: 1. Multiple tiny pancreatic cysts. In addition, there are 2 slightly larger cysts, 1 in the pancreat ic neck and the other in the pancreatic tail. The cystic finding in the pancreatic neck is the large st and measures 11 x 9 millimeters. The other which is in the pancreatic tail region measures 5 x 6 millimeters. Recommend repeat MRI in 6 months to ensure stability. 2. Cholelithiasis. No evidence of acute cholecystitis nor dilatation of the biliary tree. 3. There is no ascites. DATA REPOSITORY:
[2021-11-03] MEDS: Gadoterate meglumine 20 ML VIAL 18 ML IVP (09:07)
--- NOTE | 2021-11-04 10:06 | DI.VRAD_ITS ---
PROCEDURE INFORMATION: Exam: MR Abdomen Without and With Contrast Exam date and time: 11/03/2021 8:42 AM Age: 75 years old Clinical indication: Abnormal findings; Mass, lump, or swelling; Other parts of digestive tract; Patient HX: ? Pancreas mass on CT TECHNIQUE: Imaging protocol: MR of the abdomen without and with intravenous contrast. Contrast material: DOTAREM; Contrast volume: 18 ml; Contrast route: INTRAVENOUS (IV); COMPARISON: CT ABDOMEN PELVIS W 09/20/2021 4:00 AM FINDINGS: Liver: No mass. Gallbladder and bile ducts: Gallstones. Otherwise unremarkable gallbladder without evidence of wall thickening or surrounding inflammation. No biliary dilatation. Common bile duct diameter is 4 mm. No filling defects in the common bile duct. Pancreas: Pancreas is moderately atrophic. No pancreatic ductal dilatation is identified. There are two T2 hyperintense cysts in the pancreas, which measure 1.1 x 1.1 x 0.9 cm in the pancreatic neck, and 0.5 x 0.7 x 0.5 cm in the pancreatic tail. No mural nodules or septations are seen in these cysts. Calcification of the wall of the pancreatic neck cyst was better seen on the prior CT. A number of additional 2-3 mm pancreatic cysts are scattered throughout the pancreas. No solid pancreatic mass is identified. Spleen: Unremarkable. No splenomegaly. Adrenal glands: Unremarkable. No mass. Kidneys and ureters: Parapelvic right renal cysts. Nonenhancing 9 mm intraparenchymal simple cyst in the lower pole of the right kidney. A few additional T2 hyperintense structures in the kidneys without definite enhancement, which are too small to definitively characterize, but likely benign. Otherwise unremarkable kidneys. Stomach and bowel: Visualized stomach and intestines are unremarkable. Intraperitoneal space: No free fluid. Arteries: No abdominal aortic aneurysm. Bones/joints: Unremarkable. Soft tissues: Unremarkable. IMPRESSION: 1. Pancreatic cysts, measuring up to 1.1 cm in size.Reimaging every 2 years for 10 years is recommended. (Reference: Van, 2017) 2. Cholelithiasis, without evidence of acute cholecystitis. REFERENCES: Van NICOLE, et al. Management of Incidental Pancreatic Cysts: A White Paper of the ACR Incidental Findings Committee. J Am Linda Radiol. 2017;14(7):911-923. Dictated and Authenticated by: Tiffanie Yates MD. Ordering:SHIVAM Antoine MD
== END 2021-11-03 01:46 ==
PROVIDERS: PCP Nurse Practitioner Family; Visit Provider Family Medicine
DX: K86.9 Disease of pancreas, unspecified (principal); R93.5 Abnormal findings on diagnostic imaging of other abdominal regions, including retroperitoneum; K80.20 Calculus of gallbladder without cholecystitis without obstruction
CPT/HCPCS: 74183

== ENCOUNTER 2022-06-18 09:49 | Outpatient (CLI) | payer MEDICARE, SELFPAY ==
--- NOTE | 2022-06-18 09:00 | DI.RAD_ITS ---
Exam(s) XR HIP RT COMPLETE AP PELVIS EXAM: XR HIP RT COMPLETE AP PELVIS CLINICAL HISTORY: preoperative. TECHNIQUE: 2D digital imaging was performed. COMPARISON: CR XR HIP RT AP LAT ONLY from 05/21/2021 FINDINGS: Two views: There is evidence of bilateral inguinal hernia repairs. No evidence of pelvic nor hip fracture. Mild narrowing of the right hip joint space is unchanged fro m 05/21/2021. No radiographic evidence of progression. Left hip unremarkable. IMPRESSION: Stable appearance the mild narrowing of the right hip joint space. DATA REPOSITORY: RADIATION DOSE DELIVERED:
== END 2022-06-18 09:50 | disposition home or self-care (01) ==
LOC: DIORS 09:53
PROVIDERS: PCP Nurse Practitioner Family; Referring Provider Nurse Practitioner Family; Visit Provider Physician Assistant Surgical
DX: M25.851 Other specified joint disorders, right hip (principal)
CPT/HCPCS: 99214; 73502

== ENCOUNTER 2022-07-19 03:57 | Outpatient (CLI) | payer MEDICARE, SELFPAY ==
[2022-07-19 15:21] LABS: Abs Immature Grans 0.02 10^3/uL (0.0-0.06); Absolute Basophil Count 0.03 10^3/uL (0.0-0.2); Absolute Eosinophil Count 0.31 10^3/uL (0.0-0.7); Absolute Lymphocyte Count 1.57 10^3/uL (1.2-3.4); Absolute Monocyte Count 0.67 10^3/uL (0.1-0.8); Basophils % 0.5; Eosinophils % 5.3; HCT 44.5 % (40.0-50.0); Immature Grans % 0.3; Lymphocytes % 27.1; MCH 29.1 pg (27.0-33.0); MCHC 33.7 % (32.0-36.0); MCV 86 fL (80-95); MPV 10.1 fL (8.0-11.0); Monocytes % 11.6; Neutrophils % 55.2; Platelet Count 180 10^3/uL (130-400); RBC 5.16 10^6/uL (4.36-5.78); RDW-SD 38.3 fL
[2022-07-19 15:32] LABS: INR 1.1 (0.9-1.1); Prothrombin Time 11.3 sec (9.3-11.0)
[2022-07-19 15:42] LABS: Hemoglobin A1C 7.3 % (<5.7)
[2022-07-19 16:15] LABS: ALT 136 U/L (16-63); AST 71 U/L (15-37); Albumin 4.2 g/dL (3.4-5.0); Alkaline Phosphatase 101 U/L (46-116); Anion Gap 6.9 mmol/L (3-11); BUN 18 mg/dL (7-18); Bilirubin, Total 1.2 mg/dL (0.2-1.0); CO2 30.1 mmol/L (21.0-32.0); CREATININE 1.1 mg/dL (0.70-1.30); Calcium 9.4 mg/dL (8.5-10.1); Chloride 104 mmol/L (98-107); Estimated GFR 70.01 (mL/min/1.73m2); Glucose 217 mg/dL (74-106); Sodium 141 mmol/L (136-145); Total Protein 7.5 g/dL (6.4-8.2)
== END 2022-07-19 03:58 | disposition home or self-care (01) ==
LOC: LBO 03:58
PROVIDERS: Physician Assistant; PCP Nurse Practitioner Family; Visit Provider Student in an Organized Health Care Education/Training Program
DX: K76.0 Fatty (change of) liver, not elsewhere classified (principal); R73.01 Impaired fasting glucose; M16.11 Unilateral primary osteoarthritis, right hip; Z01.818 Encounter for other preprocedural examination; M25.851 Other specified joint disorders, right hip
CPT/HCPCS: 80048; 80053; 85027; 83036; 85025; 85610

== ENCOUNTER 2022-07-27 06:00 | Day surgery (SDC) | payer MEDICARE, SELFPAY ==
[2022-07-27] VITALS (14 sets, daily range): BP systolic 82–159; BP diastolic 59–101; PULSE 51–68; RESP 13–19; TEMP 36.1–36.8; O2SAT 95–99; BMI 27.7
[2022-07-27] MEDS: Celecoxib 200 MG CAP 400 MG PO (06:34)
[2022-07-27] MEDS: Acetaminophen 500 MG TAB 1000 MG PO (06:34)
--- NOTE | 2022-07-27 07:00 | ANES.PREOP_ITS ---
General Info Date of Service Date Performed: 07/27/22 Height: 6 ft 2 in Weight: 98.1 kg Body Mass Index (BMI): 27.7 Surgical Procedure: Operation Date: 07/27/22 07:50 Proposed Procedure Side Surgeon p Hip Total Hip Anterior, Corail (Sz 14-15) Right Bret Hendrix MD Meds Allergies and Home Medications Allergies Allergy/AdvReac Type Severity Reaction Status Date / Time No Known Drug Allergies Allergy Verified 07/27/22 06:24 Home Medication Medication Instructions Recorded cbd oil PO .qd 12/07/18 diphenhydramine 25 1 tab PO QHS PRN 11/17/20 mg-acetaminophen 500 mg tablet (Tylenol PM Extra Strength) Lactobacillus acidophilus PO .QD 09/23/21 [Probiotic] nervestra PO .qd 09/23/21 celecoxib 200 mg capsule (Celebrex) 200 mg PO BID PRN pain #60 caps 12/16/21 omeprazole 20 mg capsule,delayed 20 mg PO DAILY #90 tab-caps 04/23/22 release amlodipine 5 mg tablet 5 mg PO DAILY #90 tab-caps 07/15/22 losartan 100 mg tablet (Cozaar) 100 mg PO DAILY #90 tab-caps 07/15/22 aspirin 500 mg-sod bicarb 1,985 tab PO 07/19/22 mg-citric acid 1,000 mg efferv tablet (Sandra-Sylvester Extra Strength) ascorbic acid (vitamin C) 500 mg 500 mg PO DAILY 07/27/22 tablet (Vitamin C) vitamin B12 1,000 mcg-folic acid forest sublingual 07/27/22 400 mcg sublingual lozenge Current Visit Medications: Current Medications Generic Name Dose Route Start Last Admin Trade Name Freq PRN Reason Stop Dose Admin Acetaminophen 1,000 mg 07/27/22 06:00 07/27/22 06:34 Acetaminophen 500 Mg Tab PO 07/27/22 16:00 1,000 mg PREOP YONATAN Administration Celecoxib 400 mg 07/27/22 06:00 07/27/22 06:34 Celecoxib 200 Mg Cap PO 07/27/22 16:00 400 mg PREOP YONATAN Administration Tranexamic Acid 1,000 mg/ 60 mls @ 360 mls/hr 07/27/22 06:00 Sodium Chloride IV 07/27/22 16:00 PREOP YONATAN Ringer's Solution 1,000 mls @ 80 mls/hr 07/27/22 06:00 IV 08/25/22 23:59 INFUSION YONATAN Cefazolin Sodium/Dextrose 2 gm in 50 mls @ 100 mls/hr 07/27/22 06:00 Ancef Duplex IVPB 07/27/22 16:00 PREOP YONATAN IV Miscellaneous Supplies 1 each 07/27/22 06:00 Iv Access IV 08/25/22 23:59 DIRECTED YONATAN Sodium Chloride 0 ml 07/27/22 06:00 Normal Saline Flush 10 Ml Syr IV 08/25/22 23:59 PRN PRN Sodium Chloride 0 ml 07/27/22 06:00 Normal Saline 10 Ml Vial IJ 08/25/22 23:59 DIRECTED PRN Sterile Water 0 ml 07/27/22 06:00 Water,Injection,Sterile 10 Ml Vial IJ 08/25/22 23:59 DIRECTED PRN PFSH Active Problems Active Problems: Problem Status Onset Code Pancreatic cyst K86.2 History of colon polyps Z86.010 Chronic low back pain with right-sided sciatica M54.41, G89.29 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 Right hip pain M25.551 Gastroesophageal reflux disease K21.9 Numbness and tingling of right leg R20.0, R20.2 Sensorineural hearing loss, bilateral 02/28/14 H90.3 Non-alcoholic fatty liver disease 11/05/16 K76.0 IFG (impaired fasting glucose) 05/13/17 R73.01 Hyperlipidemia, unspecified 12/25/13 E78.5 Essential hypertension I10 Elevated LFTs R94.5 Dyslipidemia E78.5 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 Candidate for statin therapy due to risk of future cardiovascular event Z91.89 Medical History Medical History Cholelithiasis Inguinal hernia BILAT OPEN WITH MESH Pancreatic cyst 11/03/2021 MRI: 6 mo f/u recommended to ensure stability, pt declines Right bundle branch block (RBBB) SARS-CoV-2 positive (03/16/22) Tubular adenoma of colon (10/22/16) Surgical History Surgical History Status post arthroscopy of right shoulder (~2010) Status post inguinal hernia repair B/L; 2000 & 2012 Tobacco Smoking/Tobacco Use Status: Never Alcohol Alcohol Intake: current Alcohol intake frequency: 0-2 drinks per day Alcohol type: beer and hard liquor Substance Use Substance use: Never Substance use type: does not use Details: alcohol: t-1, one drink Vital Signs and Lab Results Vital Signs Most Recent Vital Signs in EMR: Most Recent Vital Signs Temp Pulse Resp BP Pulse Ox 36.6 C 68 14 159/10 H 99 07/27/22 06:36 07/27/22 06:36 07/27/22 06:36 07/27/22 06:36 07/27/22 06:36 Vital Signs Comment Vital Signs Comment:: Blood pressure: 159/101, correction. RN made aware and will update record. Lab Results Blood Type / Crossmatch: No Data to Display Complete Blood Count: White Blood Count 5.80 10^3/uL (4.4-10.8) 07/19/22 15:15 Red Blood Count 5.16 10^6/uL (4.36-5.78) 07/19/22 15:15 Hemoglobin 15.0 g/dL (13.5-17.5) 07/19/22 15:15 Hematocrit 44.5 % (40.0-50.0) 07/19/22 15:15 Platelet Count 180 10^3/uL (130-400) 07/19/22 15:15 Complete Metabolic Panel: Sodium 141 mmol/L (136-145) 07/19/22 15:15 Potassium 4.0 mmol/L (3.5-5.1) 07/19/22 15:15 Chloride 104 mmol/L (98-107) 07/19/22 15:15 Carbon Dioxide 30.1 mmol/L (21.0-32.0) 07/19/22 15:15 BUN 18 mg/dL (7-18) 07/19/22 15:15 Creatinine 1.1 mg/dL (0.70-1.30) 07/19/22 15:15 Est GFR (CKD-EPI 2020) 70.01 (mL/min/1.73m2) 07/19/22 15:15 Calcium 9.4 mg/dL (8.5-10.1) 07/19/22 15:15 Albumin 4.2 g/dL (3.4-5.0) 07/19/22 15:15 Glucose 217 mg/dL (74-106) H 07/19/22 15:15 Hemoglobin A1c 7.3 % (<5.7) H 07/19/22 15:15 Liver Function Panel: Alanine Aminotransferase (ALT/SGPT) 136 U/L (16-63) H 07/19/22 15:15 Aspartate Amino Transf (AST/SGOT) 71 U/L (15-37) H 07/19/22 15: 15 Coagulation Panel: INR International Normalized Ratio 1.1 (0.9-1.1) 07/19/22 15:1 5 Prothrombin Time 11.3 sec (9.3-11.0) H 07/19/22 15:15 Cardiac Panel: No Data to Display Arterial Blood Gas: No Data to Display Venous Blood Gas: No Data to Display Pancreas Panel: No Data to Display Thyroid Panel: 2 No Data to Display Infectious Disease: No Data to Display Blood Cultures: No Data to Display Toxicology Panel: No Data to Display Anesthesia Assessment and Plan Anesthesia History Personal History: No History of Anesthesia Complications Family History: No Family History of Anesthesia Complications Exercise Tolerance Exercise Tolerance: Metabolic Equivalents>4 Pertinent Negatives Pertinent Negatives: No Symptoms of GERD, No Major Cardiovascular Symptoms or Complaints and No Major Pulmonary Symptoms or Complaints Cardiac & Pulmonary Exam Cardiac Exam: Normal S1/S2 Heart Sounds Pulmonary Exam: Clear Bilateral Breath Sounds Implantable Cardiac Device Does patient have a Pacemaker or an ICD?: No Airway Exam Known Difficult Airway: No Mallampati Class: 2 Mouth Opening: Normal (> 3cm) Thyromental Distance: Greater than 3 cm Neck Range of Motion: Full ROM Neck Circumference: Normal Teeth Condition: Normal Dentition ASA Classification ASA Score: ASA 2 Emergency Case?: No NPO Status NPO Status: NPO Clears >2 hours, Solids >8 hours Anesthesia Plan Resuscitation Status: Full Code Anesthesia Technique: Spinal Anesthesia Airway Planned: Natural Airway Monitors Used: Standard Monitors Preoperative Comments:: Pre-existing Right sciatic nerve impingement per patient, reports symptoms for years.
--- NOTE | 2022-07-27 07:09 | DI.RAD_ITS ---
Exam(s) XR HIP RT IN OR EXAM: XR HIP RT IN OR CLINICAL HISTORY: OA RIGHT HIP TECHNIQUE: 2D and realtime digital imaging was performed. CONTRAST MATERIAL: Refer to procedure report. COMPARISON: CR XR HIP RT COMPLETE AP PELVIS from 06/18/2022 FINDINGS: Fluoroscopy was provided for Dr. Hendrix during the performance of a right hip replacement. Please refer to the procedure report for complete details. Ka,r=11.3 mGy IMPRESSION: RADIATION DOSE DELIVERED:
[2022-07-27] MEDS: Lactated Ringers 1,000 ML 80 ML IV (07:10)
--- NOTE | 2022-07-27 07:18 | DSE_ITS ---
Date of service: 07/27/22 Time of Service: 11:48 Discharge Plan Disposition Patient Disposition: Home Discharge Details Reason For Visit: Right hip DJD Attending Provider: Bret Hendrix Primary Care Provider: Chantel Nguyen Home Meds and New Rx's Prescriptions: New acetaminophen 500 mg tablet 500 mg PO Q6H PRN (Reason: pain) Qty: 60 2RF aspirin 81 mg tablet,delayed release (DR/EC) 81 mg PO BID 30 Days Qty: 60 0RF celecoxib [Celebrex] 200 mg capsule 200 mg PO BID Qty: 30 0RF docusate sodium [Colace] 100 mg capsule 100 mg PO BID Qty: 30 0RF oxycodone 5 mg tablet 5 mg PO Q6H PRN (Reason: severe post-operative pain) Qty: 12 0RF Rx Instructions: Take one tablet up to every 6 hours as needed for severe pain Continued nervestra PO .qd Lactobacillus acidophilus [Probiotic] PO .QD Rx Instructions: 1.75 billion cell omeprazole 20 mg capsule,delayed release(DR/EC) 20 mg PO DAILY Qty: 90 3RF Rx Instructions: Take 20 mg once daily in the morning at least 30 minutes before meal cbd oil PO .qd [place] Extra Strength 500-1,985-1,000 mg tablet, effervescent PO losartan [Cozaar] 100 mg tablet 100 mg PO DAILY Qty: 90 0RF amlodipine 5 mg tablet 5 mg PO DAILY Qty: 90 0RF ascorbic acid (vitamin C) [Vitamin C] 500 mg Tablet 500 mg PO DAILY vitamin [id number] acid 1,000-400 mcg Lozenge SUBLINGUAL Discontinued diphenhydramine-acetaminophen [Tylenol PM Extra Strength] 25-500 mg tablet 1 tab PO QHS PRN celecoxib [Celebrex] 200 mg capsule 200 mg PO BID PRN (Reason: pain) Qty: 60 0RF Discharge Instructions Additional Instructions: Total Hip Discharge Instructions Activity: The most important activity is to walk. You should try to take short walks a few times a day. You have no restrictions on movement or positioning, but do not try to force what you do. You will find some stiffness and weakness with hip flexion (lifting your knee). Do not try to strengthen this too early, continue to practice walking and stairs and this will come. - Outpatient physical therapy can be helpful to help return you to a normal gait and improve your flexibility and strength. This can start around 2 weeks. For some patients, it?s not necessary. Usually this is determined at the time of discharge or at the first post-operative visit. - You should wear the MERVAT hose on both legs for 2 weeks. Dressing: Keep the surgical dressing in place for at least one week. After the first week it may be removed and replace with light gauze and tape or nothing. It may get wet after 3 days but avoid soaking the dressing. If it gets wet, just lightly pat dry. It is important to always keep some gauze between skin folds, especially when you are sitting. Spend some time with the wound exposed when you are lying flat as the incision does wrinkle onto itself. Medications: - You should take Tylenol and an anti-inflammatory Celebrex as your primary pain control medications. If the Celebrex is too expensive or not covered, please call the office for another alternative (Advil/Ibuprofen or Naproxen/Aleve). - You have been prescribed a stronger pain medication Oxycodone for breakthrough pain, take as needed as prescribed. - You have also been prescribed a stomach acid reduction agent Pantoprozole to help reduce stomach acid and reflux. - You will be taking Aspirin 81mg twice a day for DVT prevention unless instructed otherwise. - If you have constipation you should take Colace (which has been prescribed) or Miralax (which is available [id number]). It takes most people 3-4 days to have a bowel movement. Follow-up: 2 weeks If you have any acute concerns or questions, please do not hesitate to contact the office at [phone]. You may contact Dr. Hendrix with any questions after hours through the hospital at [phone] or on his cell phone at [phone]. Stand Alone Forms: Anesthesia Discharge Inst., Osmin.Nerve Block Instructions, Alexsandra Colbert (DSU) Referrals: Bret Hendrix MD [ [facility] STAFF PHYSICIAN] - Equipment/Supplies: Walker Activity:: Activity as Tolerated Remove Dressings/Wound Care:: Do Not Remove Shower/Bathe:: Cover Diet:: As Tolerated DS: Summary Time Spent with Patient providing and/or coordinating discharge services: Less than 30 minutes Status at Discharge Functional status at discharge: uses cane/walker Overall status at discharge: patient is progressing back to baseline Mental Status: mental status grossly normal Speech and Movement: speech and movement normal Mood: congruent mood Affect: normal affect Exam Psych Mental Status: mental status grossly normal Speech and Movement: speech and movement normal Mood: congruent mood Affect: normal affect DS: Data Vitals/I&O Vitals and I&O: Vital Signs Temperature 97.9 F 07/27/22 06:36 Pulse 68 07/27/22 06:36 Pulse Rhythm Regular 07/27/22 06:36 Respiratory Rate 14 07/27/22 06:36 Respiratory Depth Normal 07/27/22 06:36 Blood Pressure 159/10 H 07/27/22 06:36 Pulse Oximetry 99 07/27/22 06:36 Oxygen Delivery Method Room Air 07/27/22 06:36 Oxygen Flow Rate 0 07/27/22 06:36 Pain Level 4 07/27/22 06:36 Intake & Output 07/26/22 07/26/22 07/27/22 11:59 23:59 11:59 Weight 216 lb 4.375 oz PFSH All Active Problems Pancreatic cyst (Acute) 11/03/2021 MRI: 6 mo f/u recommended to ensure stability, pt declines History of colon polyps (Acute) Chronic low back pain with right-sided sciatica (Acute) Femoroacetabular impingement of right hip (Acute) Right hip pain (Acute) Gastroesophageal reflux disease (Chronic) Numbness and tingling of right leg (Chronic) 02/2020 Ortho consult: most likely 2/2 intermittent compression of sciatic nerve Sensorineural hearing loss, bilateral (Chronic 02/28/14) Non-alcoholic fatty liver disease (Chronic 11/05/16) NEG hep B & C [facility] consult 11/02/2016: Most likely cause for elevated LFTs, bilirubin, & ferritin is NAFLD not hemochromatosis. Recommend annual monitoring of CBC, CMP, PT/INR, serum phlebotomy if serum iron saturation robustly increases in parallel with serum ferritin. IFG (impaired fasting glucose) (Chronic 05/13/17) Hyperlipidemia, unspecified (Chronic 12/25/13) 11/2018 labs: 10-year ASCVD risk = ~26.1% --> statin recommended, pt declines, plan to stop checking lipid panels Essential hypertension (Chronic) Goal BP </= 150/90 (pt has issues with dizziness/lightheadedness if BP too low) Elevated LFTs (Chronic) NEG Hep B & C, [place] iron studies Determined related to NAFLD ([facility] GI consult 10/2016) Dyslipidemia (Chronic) Low HDL, candidate for statin therapy based on CV risk (see candidate for statin therapy... 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) 11/02/2016 [facility] consult: Most likely due to NAFLD Candidate for statin therapy due to risk of future cardiovascular event (Chronic) 09/2014 labwork: ACC/AHA 10-year ASCVD risk = ~23% --> recommended statin therapy --> pt declines to take statin Medical History Cholelithiasis Inguinal hernia BILAT OPEN WITH MESH Pancreatic cyst 11/03/2021 MRI: 6 mo f/u recommended to ensure stability, pt declines Right bundle branch block (RBBB) SARS-CoV-2 positive (03/16/22) Tubular adenoma of colon (10/22/16) Surgical History Status post arthroscopy of right shoulder (~2010) Status post inguinal hernia repair B/L; 2000 & 2012 Family History Mother Personal history of malignant neoplasm breast Father Nephrolithiasis Pulmonary emphysema Son Hepatic steatosis Daughter Hepatic steatosis Brother Essential hypertension Social History Smoking/Tobacco Use Status: Never Smoking risk assessment performed?: Yes Alcohol Intake: current Alcohol Intake frequency: 0-2 drinks per day Alcohol type: beer and hard liquor Drug use: Never Substance use type: does not use Details: alcohol: t-1, one drink Adopted: No Caregiver/Support person: No Foster care: No Household members: spouse Number of Children: 4 number of grandchildren: 16 Communication Needs: None current occupation: Builds tubing tubes, welding Pets and animals: No Current gender identity: male What type of physical activity do you participate in: walking and other Details: golf Duration: 15-30 minutes/day Frequency: daily Seatbelt use: always Helmet use: No Drive intox or ride w/intox hire car driver: No Water heater temp set <120 deg: Yes Working smoke detector in home: Yes Fire extinguisher in home: Yes Carbon monox detector in home: Yes Firearms in home: Yes Firearms unloaded and locked: Yes Do you feel safe at home: Yes Do you feel safe in your relationship?: Yes Additional Social history: unable to assess privately
[2022-07-27] MEDS: ceFAZolin 2 GM/50 ML BAG IVPB (07:39)
--- NOTE | 2022-07-27 09:38 | ROE_ITS ---
Date of service: 07/27/22 Time of Service: 09:38 Operative Note Operative Note DATE OF PROCEDURE: 07/27/22 PRE-OP DIAGNOSIS: Right Hip Osteoarthritis POST-OP DIAGNOSIS: same PROCEDURE: Right Anterior Total Hip Arthroplasty with Intraoperative Navigation SURGEON: Bret Hendrix HOOKING MACHINE OPERATOR: Mayra Zimmerman ANESTHESIA TYPE: Spinal Refer to Anesthesia Record ESTIMATED BLOOD LOSS: 350 PATHOLOGY: none sent TOURNIQUET TIME: 0 COMPLICATIONS: None Patient was transported to: PACU Patient's condition: stable Implants: 1. Depuy [place] Acetabular Component, 58mm 2. Depuy Acetabular Liner, [id number] 3. Depuy Corail Coxa Vara Collared Femoral Stem, Size 15 4. Depuy Altrx Ceramic Femoral Head, Size 36+5mm Indications: I have seen Aldo in clinic for symptoms of hip arthritis, confirmed with radiographic findings. He has exhausted nonoperative methods and was having significant limitations in daily function and desired better function and less pain. I discussed the technical details of a hip replacement. I explained the risks of the procedure to include, but not limited to, bleeding, infection, pain, stiffness, fracture, damage to nerves and vessels, damage to muscles and tendons, loosening, instability, leg length inequality, need for repeat procedure, blood clot and cardiopulmonary demise. Despite these risks, Aldo elected to proceed. Findings: There was significant signs of arthritis throughout the hip. Procedure Description: Aldo was greeted in the preoperative holding area where the correct side was identified and marked. The consent was reviewed with the patient and signed. The history and physical was updated. All questions were answered. He was taken back to the operating room. A spinal anesthestic was then admin istered. The feet were wrapped with cast padding and Coban and then placed into the boot liners and then into the boots. Care was taken to protect the skin and make sure the heels were fully down and the boots were stable. The patient was then positioned onto the HANA table. Both legs were held in a neutral position. SCDs were applied. The patient was then slid down onto a peroneal post. Prophylactic antibiotics in the form of Cefazolin were administered. 1g of Tranxemic Acid was given intravenously within 30 minutes of incision. The right leg was then prepped with Chloraprep and draped in a standard fashion. A second prep with Chloraprep was performed prior to placement of a shower-curtain type drape with Iodine impregnated skin protection. A timeout to confirm correct identity, side and site, procedure, allergies, anesthesia, and medical concerns was performed. An obliquely oriented incision was made starting lateral to the ASIS and running distal over the Tensor Fascia Vero (TFL) muscle belly toward the fibular head, approximately 10cm. The skin and soft tissue was dissected sharply, through Ledy?s fascia, and to the fascia of the TFL. With the fascia and superior border of the IT band identified, the fascia was incised with a new knife just above any perforators from the IT band. The TFL muscle belly was bluntly dissected away from the fascia and moved laterally. The fat between TFL and rectus was identified to ensure the dissection was not within the TFL. Blunt dissection created space between abductors and the capsule and retractor was placed over the lateral femoral neck. The fibers of the rectus femoris tendon were identified and these were freed from the anterior capsule. A second cobra retractor was placed around the medial femoral neck. The TFL was further retracted laterally to show the deep fascia. Careful dissection through this layer identified three main crossing vessels of the lateral femoral circumflex. These were cauterized in multiple locations and then cut without any noticeable bleeding. The TFL was further released bluntly from the deep fascia to expose anterior hip capsule and fat The Shai orthopaedic retractor was then placed beneath the TFL and against sartorius and medial soft tissues to protect and retract the soft tissues. A T-capsulotomy was then performed starting at the superior lateral acetabulum and moving distally to the intertrochanteric ridge. These capsular flaps were tagged with a No. 1 Ethibond and elevated from within. The capsular flaps were released to the shoulder of the lateral neck and to the lesser trochanter to give excellent visualization of the proximal femur. A neck osteotomy was performed using an oscillating saw based on preoperative templates. This cut started in the shoulder and of the lateral neck and exited medially. The saw was at all times directed medially to avoid injury to the greater trochanter. Gross traction was applied to the leg and the osteotomy opened. The femoral head was removed with a corkscrew, making sure to protect the TFL on its exit. Traction was released after head removal. This was measured on the back table to determine the starting reamer size. Portions of the rectus obscuring visualization were minimally elevated off the superior acetabulum. An anterior retractor was placed over the anterior wall between capsule and labrum and attached to the Gripper retraction system. The femur was rotated to 90 degrees and medial capsule was fully released until the lesser trochanter was palpable and visible; the femur was returned to 30 degrees. A posterior retractor was placed similarly between capsule and labrum. This provided excellent visualization. The contents of the cotyloid fossa were removed with electrocautery and the labrum was removed with a knife. There was a notable floor osteophyte. There was significant chondromalacia of the superior acetabulum. Acetabular reaming began with a 54mm reamer. This first reaming was directed anterior to posterior and medial to get down to the true floor. This was inspected and reamed until the true floor was reached. The anterior retractor was then released and entry and exit was provided by traction on the capsular flaps. I then reamed sequentially up to a 58mm reamer where good fit was obtained. The larger reamers were oriented based on anatomical reference of the anterior and lateral schwarz to ensure proper abduction and anteversion. Positioning and size was confirmed with the fluoroscopy. A 58mm Depuy [place] acetabular component was selected. The acetabulum was reamed around the periphery with the selected acetabular size to prevent a rim fit. The deep tissues were irrigated. The acetabular component was then impacted in a position of about 40-45 degrees of abduction and 15-20 degrees of anteversion, using the patient?s anatomy as the ultimate landmark. Fluoroscopy was used to confirm this. There was excellent seat cover installer of the acetabular component and the inserting handle was removed. The acetabular liner, Depuy [id number] polyethylene liner, was inserted and lined up with the tines of the acetabular component. There was no soft tissue interposition. The liner was then impacted into position and confirmed to be well-seated. A portion of the yesenia-articular cocktail was then injected around the acetabulum into the capsule and periosteum. This cocktail consisted of 123mg of Ropivacaine, 0.25mg of Epinephrine, 0.04mg of Clonidine, and 15mg of Ketorolac, diluted to 50cc. The leg was rotated to 120 degrees. Any remaining medial capsule was released until the lesser trochanter was easily palpable. A retractor was placed medially. The lateral capsule was further released into the shoulder to allow access to the greater trochanter. A Larose retractor was placed over the greater trochanter which allowed the trochanter to flip in front of the capsule for excellent exposure. The leg was brought down into maximal extension and 20 degrees of adduction while ensuring there was no impingement on the acetabulum. Any remnant capsule within the trochanter was released. Piriformis and obturator externis were identified and protected. There was excellent access to the proximal femur. The lateral neck remnant was removed with a rongeur. A blunt canal probe was used to identify the canal and trajectory for later broaching. A box osteotome initiated the broach course. A small curved rasp and a curved curette were used to work laterally. Broaching then began with a size 8 Corail broach. This was inserted manually around the trochanter and into the canal before mallet blows. The broach was seated to a few millimeters below the cut level based on the neck cut and the preoperative template. Sequential broaching was continued with the [employer] pneumatic broaching device until a tight fit was obtained with good rotational control of the femur. A trial standard neck was inserted along with a +5 trial head. The leg was brought out of extension and adduction and then reduced with traction and internal rotation. The leg was stable anteriorly in a position of 30 degrees of extension and 90 degrees of external rotation. Fluoroscopy was used to ensure there was no fracture and the stem was seated well. Leg lengths were checked with an AP pelvis and pelvic reference points. ZENT navigati on system was used to confirm appropriate positioning and leg length and offset. This over-corrected the leg length yet under-corrected the offset, which would be improved with a Coxa Vara neck. Once content with the desired offset and leg lengths, the leg was brought back into extension, external rotation and adduction. The periosteum and surrounding tissue was injected with remaining portion of the yesenia-articular cocktail. The proximal femur was irrigated as well as the deep tissues. The Depuy Corail Coxa Vara collared stem, size 15, was then manually inserted into the proximal femur making sure to control rotation. It was then malleted into position with light blows, giving breaks to allow bone expansion and decrease risk of fracture. The selected Depuy Altrx Ceramic Head, size 36+5mm, was then placed onto the clean and dry trunnion and secured with impaction onto the tapered fit. The leg was brought back out of extension and adduction and reduced with traction and internal rotation. Stability was confirmed with no shuck at 90 degrees of external rotation and 30 degrees of extension. No impingement through range of motion arc. Final x-ray images were obtained with fluoroscopy to confirm adequate positioning and no intraoperative fracture. The deep tissues were thoroughly irrigated with Surgiphor, betadine solution. This was allowed to sit in the wound for 3 minutes before being thoroughly irrigated out with normal saline. The capsule was then reapproximated with the previously placed Ethibond sutures. The TFL fascia was finally closed with a No. 2 Stratafix, barbed suture. Deep tissues were then reapproximated with 0 Vicryl and a running 2-0 Vicryl. The skin was closed with a running 4-0 Monocryl in a subcuticular fashion. This was reinforced with skin glue. A Mepilex silver dressing was applied. At the end of the case, all counts were correct. Alod was transferred to the hospital bed without difficulty and suffering no apparent complication. Aldo has a good prognosis. Physical therapy will start today and without restrictions, weight-bearing as tolerated. Aspirin 81mg BID will be used for DVT prophylaxis.
[2022-07-27] MEDS: Normal Saline 10 ML VIAL IJ (09:51)
[2022-07-27] MEDS: HYDROmorphone 2 MG/ML SYR IVP ×2 (09:51→10:12)
[2022-07-27] MEDS: oxyCODONE 5 MG TAB PO (11:04)
--- NOTE | 2022-07-27 11:40 | IN_ITS ---
Date of service: 07/27/22 Time of Service: 11:40 PT Notes Visit Reasons: Right hip DJD Physical Therapy Day Surgery Initial Evaluation Date: 07/27/2022 Referring Doctor: Bret Hendrix MD PT Orders: PT CONSULT: S/P ortho surgery Precautions: WBAT on the R LE with AD. 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 PMHX: Medical History? Cholelithiasis Inguinal hernia BILAT OPEN WITH MESH Pancreatic cyst 11/03/2021 MRI: 6 mo f/u recommended to ensure stability, pt declines Right bundle branch block (RBBB) SARS-CoV-2 positive (03/16/22) Tubular adenoma of colon (10/22/16) Surgical History? Status post arthroscopy of right shoulder (~2010) Status post inguinal hernia repair B/L; 2000 & 2012 Social History/Home Situation: Lives with in a private home with 4 steps to enter with rails on both sides. Independent with all aspects of ADLs prior to surgery. Equipment Owned/DME: [facility] Subjective: Agreeable to consult. Pleasant and cooperative. Reports pain at 23-/10 in the L hip. Wants to try both the crutches and the walker today. Objective: General Observation: Mepilex Ag over surgical incision. TEDs to B legs. Cold pack to R hip. Mental Status: Alert and oriented x 4 Pain: 3-4/10 in the R hip at rest, subsided with weight bearing ROM: Right Lower Extremity: Hip flexion WFL. Hip abduction WFL. Knee flexion WFL. Ankle dorsiflexion WFL. Ankle plantarflexion WFL. Left Lower Extremity: Hip flexion WFL. Hip abduction WFL. Knee flexion WFL. Ankle dorsiflexion WFL. Ankle plantarflexion WFL. Strength: Right Lower Extremity: Hip flexors 4/5. Hip abductors 4/5. Knee flexors 5/5. Knee extensors 4/5. Ankle dorsiflexors 5/5. Ankle plantarflexors 5/5. Left Lower Extremity:Hip flexors 5/5. Hip abductors 5/5. Knee flexors 5/5. Knee extensors 5/5. Ankle dorsiflexors 5/5. Ankle plantarflexors 5/5. Sensation: Intact as to pain and pressure in bilateral lower extremities Bed Mobility/Transfers: Supine to sit stand by assist Sit to stand stand by assist Stand to sit stand by assist Bed to chair stand by assist Gait: Patient tolerated with level surface ambulation of 100 feet using front wheeled walker with step through gait pattern requiring only standby assist. Denies headache, chest pain, and lightheadedness throughout activity. No loss of balance. No shortness of breath. Patient was also instructed with safe three- point gait pattern using bilateral axillary crutches requiring contact-guard assist. Stairs: Up-and-down 6 x 4 inch steps and 4 x 6 inch steps holding onto bilateral rails with step to gait pattern requiring contact-guard assist. Balance: Static Sitting: Normal Dynamic Sitting: Normal Static Standing: Fair Dynamic Standing: Fair Special Tests: Mobility Limitations Standardized Measure [facility] AM-PAC 6 clicks Basic Mobility Inpatient Short Form: Raw Score: 23 CMS Score: 70% deficit Informed Consent/Education: Patient instructed in purpose of PT consult. Packet containing LISA exercise protocol has been given to patient. Education and training on initial set of exercises that can be done at home have been completed with patient. Assessment: Pino was advised to use front wheeled walker for all mobility ADL performance to maximize independence and reduce fall risk and may progress to bilateral axillary crutches as may be advised by orthopedic surgeon during orthopedic follow-up. Patient presents with clinical signs and symptoms consistent with current/admitting diagnoses that have resulted to mobility limitations, gait instability, generalized weakness, and impairment of motor control as demonstrated by the following impairment level findings: 1. Decreased strength to right hip major muscle groups 2. Impaired standing balance Impairments are contributing to the following functional limitations: 1. Inability to safely ambulate without assistive device 2. Increase completion time for mobility ADL performance 3. Increased fall risk Patient is assessed as a 92966 moderate complexity based on the following: History: 76-year-old male with impairment level findings, functional limitations, and past medical history as indicated above Examination: Demonstrable impairment in strength, balance, and mobility level with underlying impairments and functional limitations as documented above Presentation: Evolving Decision Makin moderate complexity Goals: N/A. PT evaluation and 1-2 treatment sessions only for functional mobility training using recommended AD and for HEP instruction. Plan of Care/Treatment Plan: N/A. PT evaluation and 1-2 treatment session only for functional mobility training using recommended AD and for HEP instruction. DISCHARGE RECOMMENDATIONS: [] Home with no services [] [] Home with services [specify] [X] Home with outpatient PT. Home when medically cleared by orthopedic surgeon. Recommend outpatient PT services in order to optimize functional mobility outcomes and facilitate return to independent community ambulation without assistive device. [] SNF for continued rehabilitation [] [] [facility] [] [] SNF versus LTC based on ability to participate and progress [] TREATMENT CODE/TIME: 9716 2 x 20 minutes, 9753 0 x 20 minutes beginning at 11:40 AM. Thank you for the opportunity to participate in the care of this patient. Radha Arita PT, DPT, CLT [facility] [place], [place]
--- NOTE | 2022-07-27 11:49 | W.ANESPOSTOP ---
Postoperative Evaluation Date, Time and Location Date Performed: 07/27/22 Time Performed: 11:49 Patient Location: Day Surgery Unit Vital Signs Most Recent Imported Vital Signs: Most Recent Vital Signs Temp Pulse Resp BP Pulse Ox 36.5 C 67 16 141/100 H 96 07/27/22 11:04 07/27/22 11:04 07/27/22 11:04 07/27/22 11:04 07/27/22 11:04 Pain Score Most Recent Pain Score: Most Recent Pain Score Pain Level 4 07/27/22 11:04 Assessment Mental Status: Awake (Alert & Oriented to Patient Baseline) Airway and Respiratory Function: Patent airway with normal (patient baseline) respiratory exam Cardiovascular Function: Hemodynamically Stable Hydration Status: Adequately Hydrated Nausea & Vomiting: No Nausea or Vomiting Pain: Pt. Denies Any Pain Peripheral Nerve Block: Patient did not receive a nerve block
--- NOTE | 2022-07-27 12:47 | W.ANESPOSTOP ---
Postoperative Evaluation Date, Time and Location Date Performed: 07/27/22 Time Performed: 11:10 Patient Location: Day Surgery Unit Vital Signs Most Recent Imported Vital Signs: Most Recent Vital Signs Temp Pulse Resp BP Pulse Ox 36.5 C 67 16 141/100 H 96 07/27/22 11:04 07/27/22 11:04 07/27/22 11:04 07/27/22 11:04 07/27/22 11:04 Most Recent Vital Signs Temp Pulse Resp BP Pulse Ox 36.5 C 67 16 141/100 H 96 07/27/22 11:04 07/27/22 11:04 07/27/22 11:04 07/27/22 11:04 07/27/22 11:04 Pain Score Most Recent Pain Score: Most Recent Pain Score Pain Level 4 07/27/22 11:04 Assessment Mental Status: Awake (Alert & Oriented to Patient Baseline) Airway and Respiratory Function: Patent airway with normal (patient baseline) respiratory exam Cardiovascular Function: Hemodynamically Stable Hydration Status: Adequately Hydrated Nausea & Vomiting: No Nausea or Vomiting Pain: Pain is tolerable per patient Peripheral Nerve Block: Patient did not receive a nerve block
--- NOTE | 2022-07-27 14:02 | ANES_ITS ---
Anesthesia Note Report Anesthesia Note: [id number] Request from [facility] WINIFRED Swanson to reevaulate this pt. Upon arrival Mr. Kerns was being attended to be 2 RN's with his present. He presents laying supine/flat in a recliner with two cold wash clothes, one to his forehead and one to his neck. He does not appear diaphoretic although Mikaela RN did notice diaphoresis before laying him back in the chair. Vital signs were as listed in nurses notes. Pt was responsive to voice and oriented X 4. He denied chest pres sure, nausea, dizziness, ringing in his ears, or shortness of breath. He has no focal motor deficits. Pt was laying in recliner when event occurred. Orthostatic vitals were stable when raising the patients head to 30 and then 45 degrees approximately. Junior Colvin concurs that this presents as a vasovaga event. will reevaluate in one hour after eating and getting dressed.l
== END 2022-07-27 14:45 | disposition home or self-care (01) ==
PROVIDERS: PCP Nurse Practitioner Family; Visit Provider Student in an Organized Health Care Education/Training Program
PROC: (CPT 27130; principal; 2022-07-27 07:30)
DX: M16.11 Unilateral primary osteoarthritis, right hip (principal); I10 Essential (primary) hypertension; R73.01 Impaired fasting glucose; E78.5 Hyperlipidemia, unspecified; M25.851 Other specified joint disorders, right hip
CPT/HCPCS: 20985; 27130; C1776; 97162; 97530; 73501; J0690; J2370; J2405

== ENCOUNTER 2022-08-10 10:12 | Outpatient (CLI) | payer MEDICARE, SELFPAY ==
--- NOTE | 2022-08-10 10:00 | DI.RAD_ITS ---
Exam(s) XR HIP RT COMPLETE AP PELVIS EXAM: XR HIP RT COMPLETE AP PELVIS CLINICAL HISTORY: R LISA. TECHNIQUE: 2D digital imaging was performed. COMPARISON: CR XR HIP RT COMPLETE AP PELVIS from 06/18/2022 FINDINGS: Two views: There has been interval placement of a right hip prosthesis. Components are in satisfactory position alignment. No fracture or loosening evident. IMPRESSION: DATA REPOSITORY: RADIATION DOSE DELIVERED:
== END 2022-08-10 10:13 | disposition home or self-care (01) ==
LOC: DIORS 10:13
PROVIDERS: PCP Nurse Practitioner Family; Referring Provider Nurse Practitioner Family; Visit Provider Physician Assistant
DX: Z96.641 Presence of right artificial hip joint (principal); Z47.1 Aftercare following joint replacement surgery
CPT/HCPCS: 73502

== ENCOUNTER → 2022-09-09 11:29 | Outpatient (BNVA) | payer MEDICARE, SELFPAY | PROVIDERS: PCP Nurse Practitioner Family; Referring Provider Nurse Practitioner Family; Visit Provider Physician Assistant | DX: Z96.641 Presence of right artificial hip joint (principal); Z47.1 Aftercare following joint replacement surgery ==

== ENCOUNTER → 2023-02-28 10:08 | Outpatient (BNVA) | payer MEDICARE, SELFPAY | PROVIDERS: PCP Nurse Practitioner Family; Referring Provider Nurse Practitioner Family; Visit Provider Student in an Organized Health Care Education/Training Program | DX: Z47.1 Aftercare following joint replacement surgery (principal); Z96.641 Presence of right artificial hip joint | CPT/HCPCS: 99213 ==

== ENCOUNTER → 2023-04-25 01:13 | Outpatient (CLI) | payer MEDICARE, SELFPAY ==
--- NOTE | 2023-04-25 08:00 | DI.RAD_ITS ---
Exam(s) XR FOOT LT COMPLETE EXAM: XR FOOT LT COMPLETE CLINICAL HISTORY: eval bone spur,lt foot pain, plantar fascitis,m79.672,m72.2. TECHNIQUE: 2D digital imaging was performed. Three views. COMPARISON: No exams were available for comparison FINDINGS: BONES: No acute fracture is present. No bony destructive lesion is seen. Small enthesophyte at Ach[place] es insertion on the calcaneus. Tiny plantar calcaneal spur. JOINTS: No dislocation present. No significant degenerative changes. SOFT TISSUE: Normal. IMPRESSION: Small heel spurs. DATA REPOSITORY: RADIATION DOSE DELIVERED:
== END ==
PROVIDERS: PCP Nurse Practitioner Family; Visit Provider Student in an Organized Health Care Education/Training Program
DX: M72.2 Plantar fascial fibromatosis (principal); M79.672 Pain in left foot
CPT/HCPCS: 73630

== ENCOUNTER 2023-07-29 08:50 | Outpatient (CLI) | payer MEDICARE, SELFPAY ==
[2023-07-29 09:12] LABS: Abs Immature Grans 0.02 10^3/uL (0.0-0.06); Absolute Basophil Count 0.04 10^3/uL (0.0-0.2); Absolute Eosinophil Count 0.29 10^3/uL (0.0-0.7); Absolute Lymphocyte Count 1.39 10^3/uL (1.2-3.4); Absolute Monocyte Count 0.56 10^3/uL (0.1-0.8); Absolute Neutrophil Count 2.92 10^3/uL (1.2-6.7); Basophils % 0.8; Eosinophils % 5.6; HGB 15.1 g/dL (13.5-17.5); Immature Grans % 0.4; Lymphocytes % 26.6; MCH 28.2 pg (27.0-33.0); MCHC 32.8 % (32.0-36.0); MCV 86 fL (80-95); MPV 10.2 fL (8.0-11.0); Monocytes % 10.7; Neutrophils % 55.9; Platelet Count 192 10^3/uL (130-400); RBC 5.35 10^6/uL (4.36-5.78); RDW 12.5 % (11.8-14.1); RDW-SD 39.1 fL; WBC 5.22 10^3/uL (4.4-10.8)
[2023-07-29 09:36] LABS: ALT 48 U/L (16-63); AST 29 U/L (15-37); Albumin 4.1 g/dL (3.4-5.0); Alkaline Phosphatase 111 U/L (46-116); Anion Gap 6.9 mmol/L (3-11); BUN 14 mg/dL (7-18); Bilirubin, Total 1.9 mg/dL (0.2-1.0); CO2 30.1 mmol/L (21.0-32.0); CREATININE 0.9 mg/dL (0.70-1.30); Calcium 9.2 mg/dL (8.5-10.1); Chloride 101 mmol/L (98-107); Estimated GFR 88.51 (mL/min/1.73m2); Glucose 133 mg/dL (74-106); Potassium 3.5 mmol/L (3.5-5.1); Sodium 138 mmol/L (136-145); Total Protein 7.7 g/dL (6.4-8.2)
[2023-07-29 09:41] LABS: Hemoglobin A1C 6.2 % (<5.7)
[2023-07-29 09:53] LABS: COMMENT (LAB VIEW ONLY) 95.67 mg/dL; Microalb ug/mg Crea 20.8 ug/mg Cr
== END 2023-07-29 08:51 | disposition home or self-care (01) ==
LOC: LBO 08:50
PROVIDERS: PCP Nurse Practitioner Family; Visit Provider Nurse Practitioner Family
DX: E11.9 Type 2 diabetes mellitus without complications (principal); I10 Essential (primary) hypertension
CPT/HCPCS: 36415; 80053; 82043; 82570; 83036; 85025

== ENCOUNTER 2023-08-01 12:06 | Outpatient (CLI) | payer MEDICARE, SELFPAY ==
--- NOTE | 2023-08-01 11:30 | DI.RAD_ITS ---
Exam(s) XR HIP RT AP LAT ONLY EXAM: XR HIP RT AP LAT ONLY CLINICAL HISTORY: ANNUAL F/U R LISA. TECHNIQUE: 2D digital imaging was performed. Two images were obtained. AP and lateral views were ob tained. COMPARISON: CR XR HIP RT AP LAT ONLY from 05/21/2021 CR XR HIP RT COMPLETE AP PELVIS from 08/10/2022 FINDINGS: BONES: There are stable post operative changes of a right total hip replacement present. No fracture or dislocation. JOINTS: The orthopedic hardware is in good position. No evidence of hardware loosening. SOFT TISSUE: Normal. IMPRESSION: Stable postoperative changes. DATA REPOSITORY: RADIATION DOSE DELIVERED:
== END 2023-08-01 12:07 | disposition home or self-care (01) ==
LOC: DIORS 12:06
PROVIDERS: PCP Nurse Practitioner Family; Visit Provider Student in an Organized Health Care Education/Training Program
DX: Z47.1 Aftercare following joint replacement surgery (principal); Z96.641 Presence of right artificial hip joint
CPT/HCPCS: 99213; 73502

== ENCOUNTER 2024-11-13 02:07 | Outpatient (CLI) | payer MEDICARE, SELFPAY ==
[2024-11-13 09:35] LABS: HGB 15.5 g/dL (13.5-17.5); MCH 29.1 pg (27.0-33.0); MCV 88 fL (80-95); Platelet Count 181 10^3/uL (130-400); RBC 5.32 10^6/uL (4.36-5.78); RDW 12.3 % (11.8-14.1); RDW-SD 39.7 fL; WBC 5.07 10^3/uL (4.4-10.8)
[2024-11-13 09:40] LABS: INR 1.2 (0.9-1.1); Prothrombin Time 11.7 sec (9.1-11.1)
[2024-11-13 10:10] LABS: Iron 100 ug/dL (65-175); Total Iron Binding Capacity 240 ug/dL (250-450); Transferrin Sat 42 % (20-55)
[2024-11-13 10:24] LABS: ALT 50 U/L (16-63); AST 27 U/L (15-37); Albumin 4.1 g/dL (3.4-5.0); Alkaline Phosphatase 100 U/L (46-116); Anion Gap 5.1 mmol/L (3-11); BUN 18 mg/dL (7-18); Bilirubin, Total 1.7 mg/dL (0.2-1.0); CO2 30.9 mmol/L (21.0-32.0); CREATININE 0.9 mg/dL (0.70-1.30); Calcium 9.3 mg/dL (8.5-10.1); Chloride 107 mmol/L (98-107); Estimated GFR 87.96 (mL/min/1.73m2); Ferritin 71 ng/mL (26-388); Glucose 111 mg/dL (74-106); Potassium 3.9 mmol/L (3.5-5.1); Sodium 143 mmol/L (136-145); Total Protein 7.5 g/dL (6.4-8.2)
== END 2024-11-13 02:08 | disposition home or self-care (01) ==
LOC: LBO 02:08
PROVIDERS: PCP Nurse Practitioner Family; Visit Provider Nurse Practitioner Family
DX: K76.0 Fatty (change of) liver, not elsewhere classified (principal)
CPT/HCPCS: 36415; 80053; 85027; 82728; 83540; 83550; 85610

== ENCOUNTER 2025-01-21 09:57 | Outpatient (CLI) | payer MEDICARE, SELFPAY | END 2025-01-21 09:58 | disposition home or self-care (01) | PROVIDERS: PCP Nurse Practitioner Family; Referring Provider Nurse Practitioner Family; Visit Provider Nurse Practitioner Family | DX: I49.9 Cardiac arrhythmia, unspecified (principal) | CPT/HCPCS: 93246 ==

== ENCOUNTER 2025-02-08 08:20 | Outpatient (CLI) | payer MEDICARE, SELFPAY ==
--- NOTE | 2025-02-08 08:34 | W.CARDEVENT ---
Date of service: 02/08/25 Time of Service: 08:34 Cardiac Event Recorder Referring Provider:: Selena Gutierrez Indications:: Palpitations Cardiac Event Note: This is a cardiac event monitor. Patient was monitored for 10 days and 9 hours. Rhythm throughout was sinus with an average heart rate of 62. Minimum was 44, maximum 136. There were very rare isolated ventricular ectopic beats. There was 1 ventricular triplet. There were very rare isolated atrial premature beats. There were very rare self-limited atrial runs generally less than 5 beats in duration. There was no atrial fibrillation, no high-grade AV block, no pauses greater than 3 seconds. Reported symptoms correlated to sinus rhythm, heart rates 55 to 65 bpm
== END 2025-02-08 08:21 | disposition home or self-care (01) ==
LOC: CARDOPNVT 08:20
PROVIDERS: PCP Nurse Practitioner Family; Visit Provider Internal Medicine Cardiovascular Disease
DX: R00.2 Palpitations (principal); I49.1 Atrial premature depolarization
CPT/HCPCS: 93248